=== PATIENT | female | born 1985 | race Caucasian/White ===

== ENCOUNTER 2016-11-02 21:04 | Inpatient (IN) | payer OTHER ==
--- NOTE | ~2016-11-02 | PN ---
Unit #: [id number] #: [id number] Patient: RICHA LOGAN [id number] [facility] [address] [place] [address] [id number] I MR#: [id number] NAME: RICHA LOGAN ROOM: P202 Age: 31 Sex: F Admission Date: 11/02/2016 : 1985 Attending Physician: Devika Faith M.D. Admitting Physician: Devika Faith M.D. Primary Care Physician: Primary Care Physician Rena DÍAZ NOTES DATE OF SERVICE 11/05/2016 DISCUSSION Ms. Logan is a 31-year-old white female with substance abuse and mood disorder who was seen today. Chart was reviewed and case was discussed with the staff. She has been doing fairly well and reports that she is starting to come out of the detox, and she is hoping she will be able to go home tomorrow, being Wednesday as she reports that Wednesday she has a flight to catch, and she would like to spend little time with her mother before she has to get on the plane. MENTAL STATUS EXAMINATION Young white female who is casually dressed with fair personal hygiene, appears to be in no acute distress or discomfort. She was awake and alert on interaction with intact orientation. Her mood is anxious with congruent affect. She denies any suicidal or homicidal ideations and also denies any auditory or visual hallucinations. Her insight and judgment remain slightly impaired. TREATMENT PLAN 1. We will continue her on her current medications and treatment protocol. We will monitor her response to the medications and make further adjustments as needed. 2. We will continue to follow up. Dictated by... Chacha Garrett/toyag TD: 11/06/2016 07:27 JOB #: [id number] Unit #: [id number] #: [id number] Patient: RICHA LOGAN PROGRESS NOTES Page 1 of 1 X Devika Faith MD PROGRESS NOTE
--- NOTE | ~2016-11-02 | PN ---
Unit #: [id number] #: [id number] Patient: RICHA LOGAN [id number] [facility] [address] [place] [address] [id number] MR#: [id number] NAME: RICHA LOGAN ROOM: [facility] Age: 31 Sex: F Admission Date: 11/02/2016 : 1985 Attending Physician: Devika Faith M.D. Admitting Physician: Devika Faith M.D. Primary Care Physician: Primary Care Physician Rena DÍAZ NOTES DATE OF SERVICE: 11/04/2016 SUBJECTIVE Ms. Logan is a 31-year-old white female, who was seen today and chart was reviewed and the case was discussed with the staff. She has been anxious, withdrawn, and rather seclusive to herself. Meanwhile, she has been cooperative with the treatment recommendations and has been taking the medications and tolerating them fairly well. MENTAL STATUS EXAMINATION Young white female, who was casually dressed with a fair personal hygiene and appears to be in no acute distress or discomfort. She was awake and alert on interaction with intact orientation. Her mood was anxious with a congruent affect. She denies any suicidal or homicidal ideations and also denies any auditory or visual hallucinations. Her insight and judgment remain slightly impaired. TREATMENT PLAN 1. We will continue her on her current medications and treatment protocol. We will monitor her response to the medications and make further adjustments as needed. 2. We will continue to follow up. Dictated by... Chacha Garrett/patricio TD: 11/04/2016 20:45 JOB #: [id number] [facility] PROGRESS NOTES Page 1 of 1 X Devika Faith MD PROGRESS NOTE
--- NOTE | ~2016-11-02 | DS ---
Unit #: [id number] #: [id number] [facility]: [facility] [id number] [facility] [address] [place] [address] [id number] MR#: [id number] NAME: RICHA AVILA ROOM: [facility] Age: 31 Sex: F Admission Date: 11/02/2016 : 1985 Discharge Date: 11/06/2016 Attending Physician: Devika Faith M.D. Primary Care Physician: Primary Care Physician No DISCHARGE SUMMARY IDENTIFYING DATA Ms. Avila is a 31-year-old white female who was self-referred to the hospital. DISCHARGE DIAGNOSES Psychiatric: Opioid dependence, moderate and acute withdrawals; opioid-induced mood disorder. Medical: Polycystic ovarian disease. Stressors: Moderate psychosocial stressors. HISTORY OF PRESENT ILLNESS Please see initial psychiatric evaluation for details. PAST PSYCHIATRIC HISTORY Please see initial psychiatric evaluation for details. PAST MEDICAL HISTORY Please see initial psychiatric evaluation for details. HOSPITAL COURSE The patient [facility] and was oriented to the hospital environment. Routine p.r.n. medications were initiated, and she was started back on her home medications and opioid detox protocol was initiated and she was closely monitored. She was taking the medications regularly and was tolerating them fairly well and was able to show a decent therapeutic response and was able to come out of the detox without any complications and was willing to continue treatment on an outpatient basis. She was denying any suicidal or homicidal ideations, and was not seen to be danger to self or anyone else and as such, it was decided that she will be discharge home and will continue treatment on an outpatient basis. DISCHARGE MEDICATIONS None. DISCHARGE CONDITION Stable. PROGNOSIS Fair. Dictated by... Devika Faith M.D. Unit #: [id number] #: [id number] Patient: RICHA AVILA IAA/modl TD: 12/10/2016 13:05 JOB #: [id number] DISCHARGE SUMMARY Page 1 of 1 X Devika Faith MD X DISCHARGE SUMMARY
--- NOTE | ~2016-11-02 | PA ---
Unit #: [id number] #: [id number] Patient: RICHA AVILA [id number] [facility] [address] [place] [address] [id number] MR#: [id number] NAME: RICHA AVILA ROOM: P202 Age: 31 Sex: F Admission Date: 11/02/2016 : 1985 Date of Assessment: 11/03/2016 Attending Physician: Devika Faith M.D. Admitting Physician: Devika Faith M.D. Primary Care Physician: Primary Care Physician No PSYCHIATRIC ASSESSMENT DATE OF SERVICE 11/03/2016 IDENTIFYING DATA Ms. Avila is a 31-year-old single white female who is a resident of [place], [place] and was transferred to us from [facility], where she was taken and accompanied by her mother. CHIEF COMPLAINT "I want to detox from heroin." HISTORY OF PRESENT ILLNESS Ms. Avila is a 31-year-old white female who was transferred to us from [facility] where she was taking stating that she wants to detox from heroin and reports using 3 g of heroin by smoking it and reports using OxyContin and told her nurse that she is using 10 mg daily with the last use yesterday and the patient has not had any recurrence since Wednesday and was seen to be in significant detox with COWS of 19 indicating significant withdrawal symptoms. She reports significant depression, anxiety, irritability, restlessness, feelings of hopelessness and helplessness, but denies any suicidal ideations, intent, or plan. SUBSTANCE ABUSE HISTORY The patient reports history of cannabis and opioid dependence and currently opioids appear to be her drug of choice. PAST PSYCHIATRIC HISTORY The patient has had history of outpatient psychiatric and chemical dependency treatment in [place] some 10 years ago and currently she is not active in any treatment program, is not seeing a psychiatrist, and not taking any psychotropic medications. PAST MEDICAL HISTORY No acute or chronic medical illnesses. ALLERGIES No known medication allergies. PERSONAL AND SOCIAL HISTORY A 31-year-old white female who reports that she is single, unemployed, and lives at home with her mother and has fairly decent social support system. MENTAL STATUS EXAMINATION Unit #: [id number] #: [id number] Patient: RICHA AVILA Young white female who was casually dressed with fair personal hygiene, appears to be in no acute distress or discomfort. She was awake and alert on interaction with intact orientation to time, place, and person. Her mood was anxious and depressed with a congruent affect. Her speech was slow and restricted in content. She denies any suicidal or homicidal ideations, and also denies any auditory or visual hallucinations. Her insight and judgment remain significantly impaired. DIAGNOSTIC IMPRESSION Psychiatric: Major depressive disorder, recurrent, moderate, without psychotic features; opioid dependence, moderate and acute withdrawals. Medical: None. Stressors: Moderate psychosocial stressors. TREATMENT PLAN 1. The patient has presented with history of mood disorder and substance abuse, and has been decompensating and will need inpatient hospitalization for safety and stabilization. We will start her back on her home medications. We will adjust the medications and monitor response. 2. Supportive therapy was provided to the patient. 3. Safe, structured, and nourishing environment will be provided. ESTIMATED LENGTH OF STAY 5 to 7 days. ABILITY TO HELP SELF Limited. WILLINGNESS TO HELP SELF The patient appears to be willing to help self. STRENGTHS 1. Communicative. 2. Cooperative. PROBLEMS 1. Chronic dysphoric symptoms. 2. Chronic chemical dependency. 3. Poor social support system. DISCHARGE CRITERIA This will be contingent upon the patient's ability to go through detox without having any significant withdrawal symptoms as well as her ability to stay safe to herself, particularly after discharge from the hospital. Dictated by... Devika Faith M.D. LORRIE/patricio TD: 11/03/2016 23:46 JOB #: [id number] Unit #: [id number] #: [id number] Patient: RICHA AVILA PSYCHIATRIC ASSESSMENT Page 1 of 1 X Devika Faith MD X PSYCHIATRIC ASSESSMENT
--- NOTE | ~2016-11-02 | HP ---
Unit #: [id number] #: [id number] Patient: CORRY LOGAN [id number] [place] [address] [id number] MR#: [id number] NAME: CORRY LOGAN ROOM: P202 Age: 31 Sex: F Admission Date: 11/02/2016 : 1985 Attending Physician: Devika Faith M.D. Admitting Physician: Devika Faith M.D. Primary Care Physician: Primary Care Physician No HISTORY AND PHYSICAL HISTORY OF PRESENT ILLNESS Corry is a 31 year old admitted to [address] [place] [address] because of her drug use. She smokes heroin. PAST MEDICAL HISTORY 1. Long history of opioid abuse to include smoking heroin. 2. PCOS. PAST SURGICAL HISTORY Nothing reported. ALLERGIES No known drug allergies. SOCIAL HISTORY Smokes 1 pack per day. Denies alcohol. Admits to a long history of opioid abuse to include smoking heroin. FAMILY HISTORY Medically noncontributory. REVIEW OF SYSTEMS CONSTITUTIONAL: No fever or chills. HEENT: Denies any sore throat, ear pain or runny nose. CARDIOVASCULAR: Denies chest pain, irregular heart rhythm or palpitations. CHEST: Denies shortness of breath or cough. No hemoptysis. GASTROINTESTINAL: Denies nausea, vomiting, diarrhea or chronic constipation. ENDOCRINE: Denies history of increased thirst or urination. No recent significant weight loss or gain. GENITOURINARY: Denies dysuria, frequency, or hematuria. SKIN: Denies any rashes. HEMATOLOGIC: Denies history of increased bleeding or bruising. MUSCULOSKELETAL: Denies any hot, swollen joints. No generalized muscle pain. NEUROLOGIC: Denies problems with vision or speech. No frequent, severe headaches. No numbness, tingling or weakness in any extremities. Denies loss of bladder or bowel control. CURRENT MEDICATIONS Detox protocol. PHYSICAL EXAMINATION Unit #: [id number] #: [id number] Patient: CORRY LOGAN GENERAL: Alert, well-nourished, in no apparent distress. VITAL SIGNS: Blood pressure 110/74, heart rate 82, respirations 16, temperature 98.6. WEIGHT: 142. HEIGHT: 5 feet 11 inches. SKIN: Warm and dry without rash or lesion. HEENT: Normocephalic. TMs not viewed. Oral and nasal passages clear. Conjunctivae clear. PERRLA. EOMs intact. Thick coarse hair noted along her jaw line and chin. NECK: Supple without lymphadenopathy or thyromegaly. HEART: Regular rate and rhythm without murmur. LUNGS: Clear. ABDOMEN: Soft, nontender. : Not done. EXTREMITIES: No evidence of cyanosis, clubbing or edema. Moves all without focal deficit. NEUROLOGICAL: Grossly within normal limits. Cranial Nerves: II: Visual srinivasan are intact. III, IV AND : Extraocular movements are intact. Pupils are equal, round and reactive to light. V: Facial sensation is grossly normal. VII: Facial movements and expression are normal. VIII: Auditory acuity grossly intact. IX, X: Uvula is midline. Phonation is normal. XI: Patient shrugs shoulders and turns head normally. XII: Tongue protrudes in the midline. Sensory and Motor Function: Sensory and motor sensation is grossly normal. Motor: moves all extremities well. Coordination: Gait is normal. Deep Tendon Reflexes: Intact. IMPRESSION Psychiatric admission. RECOMMENDATIONS PSYCHIATRIC: Per psychiatrist. MEDICAL: See no contraindications to participate in facility's activities. MEDICAL PROGNOSIS Good. MEDICAL CONDITION Stable. Dictated by... Soheila MorganAMelyssa. for Chacha Gallardo/richy TD: 11/03/2016 17:57 JOB #: [id number] Unit #: [id number] #: [id number] Patient: CORRY LOGAN HISTORY AND PHYSICAL Page 1 of 1 X Yessi Pan HISTORY AND PHYSICAL
== END 2016-11-06 12:00 | disposition home or self-care (01) | DRG 885 ==
LOC: P2S 21:04
PROC: HZ2ZZZZ Detoxification Services for Substance Abuse Treatment (ICD-10-PCS; principal; 2016-11-02)
DX: F33.1 Major depressive disorder, recurrent, moderate (principal); F11.23 Opioid dependence with withdrawal; F17.210 Nicotine dependence, cigarettes, uncomplicated
CPT/HCPCS: 86592